=== PATIENT | female | born 2000 | race African-American/Black ===

== ENCOUNTER 2019-04-24 08:11 | Emergency (ER) | payer BC, OTHER ==
[~2019-04-24] VITALS: Ht 165.1 cm; Wt 55.0 kg
--- NOTE | 2019-04-24 09:20 | NUR ---
pt to room from lobby.
--- NOTE | 2019-04-24 09:25 | NUR ---
LAYA Ang at bedside for initial assessment.
[2019-04-24 09:28] LABS: ALBUMIN 4.1 g/dL (3.4-5.0); ANION GAP 9 mmol/L (5-15); CALCIUM 8.5 mg/dL (8.5-10.1); CHLORIDE 104 mmol/L (98-107); CREATININE 0.89 mg/dL (0.55-1.02)
[2019-04-24 09:40] LABS: MEAN CORPUSCULAR HEMOGLOBIN 24.9 pg (27.0-34.8); MEAN CORPUSCULAR HGB CONC 32.1 g/dL (32.4-35.8); MEAN CORPUSCULAR VOLUME 77.8 fL (80-100); PLATELET COUNT 288 x10^3/uL (130-400); RED BLOOD COUNT 5.21 x10^6/uL (3.82-5.3); RED CELL DISTRIBUTION WIDTH 16.6 % (9.6-15.2)
--- NOTE | 2019-04-24 09:52 | NUR ---
report from LAWSON Murphy. assumed care of pt at this time.
--- NOTE | 2019-04-24 09:53 | NUR ---
REPORT GIVEN TO LAWSON SAEZ WHO IS TO ASSUME CARE AT THIS TIME. PT A&O, RESPS EVEN AND UNLABORED. PT UP TO BATHROOM TO VOID AT THIS TIME, REPORTS NAUSEA BUT IS NOT VOMITING. URINE SENT TO LAB. AWAITING LAB RESULTS AND DISPO.
[2019-04-24 10:05] LABS: BASOPHILS # (AUTO) 0.05 x10^3/uL (0-0.3); BASOPHILS % (AUTO) 1 % (0-1); EOSINOPHILS # (AUTO) 0.05 x10^3/uL (0-0.8); EOSINOPHILS % (AUTO) 1 % (1-7); LYMPHOCYTES # (AUTO) 1.33 x10^3/uL (1-6.1); LYMPHOCYTES % (AUTO) 23 % (22-44); MD SCAN; MONOCYTES % (AUTO) 10 % (2-9); NEUTROPHILS # (AUTO) 3.87 x10^3/uL (1.8-8.0); NEUTROPHILS % (AUTO) 66 % (42-75)
[2019-04-24 10:06] LABS: MICROSCOPIC NOT IND
--- NOTE | 2019-04-24 10:15 | NUR ---
PT RESTING IN ROOM. VSS. POC DISCUSSED. PT CHANGED INTO GOWN. LABS DRAWN. AWAITING RESULTS AND US.
[2019-04-24 10:30] LABS: CULTURE INDICATED? NO
--- NOTE | 2019-04-24 10:58 | NUR ---
pt resting in room. vss. pt to us at this time.
--- NOTE | 2019-04-24 11:33 | NUR ---
pt back from us. no needs expressed. vss. awaiting results.
--- NOTE | 2019-04-24 11:54 | NUR ---
PT RESTING IN ROOM. VSS. NO NEEDS EXPRESSED. CALL LIGHT WITHIN REACH. ALL RESULTS BACK AT THIS TIME. CHART UP FOR RECHECK.
--- NOTE | 2019-04-24 12:00 | NUR ---
to bs to update on results and poc.
[2019-04-24 13:00] VITALS: BP 106/52
== END 2019-04-24 13:03 | disposition home or self-care (01) ==
LOC: ED 10:23
DX: O26.891 Other specified pregnancy related conditions, first trimester (principal); R10.2 Pelvic and perineal pain; F17.200 Nicotine dependence, unspecified, uncomplicated; Z32.01 Encounter for pregnancy test, result positive; Z3A.01 Less than 8 weeks gestation of pregnancy
CPT/HCPCS: 36415; 76801; 80048; 81003; 82040; 84702; 84703; 85025; 86901; 99284

== ENCOUNTER 2020-08-06 20:25 | Emergency (ER) | payer SELFPAY ==
[~2020-08-06] VITALS: Ht 165.1 cm; Wt 551.4 kg
--- NOTE | 2020-08-06 20:43 | NUR ---
UA SENT TO LAB
[2020-08-06 20:52] LABS: HCG UR SG 1.016 (1.003-1.030); MICROSCOPIC NOT IND
--- NOTE | 2020-08-06 20:56 | NUR ---
FAMILY LAW MEDIATOR: PT. TO ROOM FROM LOBBY AT THIS TIME.
[2020-08-06 21:20] LABS: BASOPHILS % (AUTO) 1 % (0-1); EOSINOPHILS % (AUTO) 1 % (1-7); LYMPHOCYTES % (AUTO) 29 % (22-44); MEAN CORPUSCULAR HEMOGLOBIN 24.9 pg (27.0-34.8); MEAN CORPUSCULAR HGB CONC 32.3 g/dL (32.4-35.8); MEAN PLATELET VOLUME 8.4 fL (7.4-10.4); MONOCYTES % (AUTO) 11 % (2-9); NEUTROPHILS % (AUTO) 57 % (42-75); PLATELET COUNT 285 x10^3/uL (130-400); RED BLOOD COUNT 5.02 x10^6/uL (3.82-5.3); RED CELL DISTRIBUTION WIDTH 15.2 % (9.6-15.2)
[2020-08-06 21:22] LABS: MD NO
--- NOTE | 2020-08-06 21:47 | NUR ---
PATENT RESTING IN BED IN NAD. CALL CHRISTIE IN REACH. SAFETY MAINTAINED. PELVIC SET UP IN ROOM
[2020-08-06 22:00] VITALS: BP 124/70
[2020-08-06 22:19] LABS: WET PREP WBCS FEW (FEW)
[2020-08-06 22:21] LABS: CLUE CELLS PRESENT (NONE SEEN)
--- NOTE | 2020-08-06 22:49 | NUR ---
PATIENT RESTING IN BED IN NAD. CALL CHRISTIE IN REACH. SAFETY MAINTAINED. WILL CONTINUE TO MONITOR
--- NOTE | 2020-08-06 22:59 | NUR ---
DISCHARGE INSTRUCTIONS REVIEWED WITH PATIENT. NO FURTHER QUESTIONS. PRESCRIPTION HANDED DIRECTLY TO PATIENT. STEADY GAIT IN ROOM. VS REMAIN STABLE. ALL PERSONAL BELONGINGS WITH PATIENT ON DEPARTURE. NO IV PLACED DURING THIS ER VISIT. SHRUTHI WHYTE NOTIFIED RN THAT SHE WAS CANCELING US FOR THIS PATIENT. Powered NOTIFIED
== END 2020-08-06 23:10 | disposition home or self-care (01) ==
LOC: ED 20:55
DX: O23.591 Infection of other part of genital tract in pregnancy, first trimester (principal); R10.2 Pelvic and perineal pain; Z3A.08 8 weeks gestation of pregnancy
CPT/HCPCS: 36415; 81003; 81025; 84702; 85025; 86901; 87210; 87491; 87591; 87808; 99284

== ENCOUNTER 2020-08-29 12:07 | Emergency (ER) | payer SELFPAY ==
[~2020-08-29] VITALS: Ht 165.1 cm; Wt 49.5 kg
--- NOTE | 2020-08-29 13:56 | NUR ---
LANGUAGE ASST: PT TO ROOM FROM LOBBY
--- NOTE | 2020-08-29 14:04 | NUR ---
THIS RN AT BEDSIDE FOR RECTAL EXAM.
[2020-08-29 14:30] VITALS: BP 105/54
== END 2020-08-29 14:32 | disposition home or self-care (01) ==
LOC: ED 14:12
DX: O46.91 Antepartum hemorrhage, unspecified, first trimester (principal); K60.0 Acute anal fissure; K59.00 Constipation, unspecified; K62.89 Other specified diseases of anus and rectum; Z3A.01 Less than 8 weeks gestation of pregnancy
CPT/HCPCS: 99281

== ENCOUNTER 2020-12-10 11:29 | Emergency (ER) | payer OTHER ==
[~2020-12-10] VITALS: Ht 165.1 cm; Wt 57.0 kg
--- NOTE | 2020-12-10 11:45 | NUR ---
batch or continuous still operator note: L&D contacted when pt first checked in to verify if patient should be seen in ER or L&D first. Per L&D the pt can be seen in ER, L&D RN will come perform FHT once patient is in a room. Pt roomed in rm 16, L&D contacted to advise that patient is ready for FHT to be performed.
--- NOTE | 2020-12-10 12:49 | NUR ---
ELISEO Bryson at bedside for eval
[2020-12-10 13:11] LABS: BASOPHILS % (AUTO) 1 % (0-1); EOSINOPHILS % (AUTO) 1 % (1-7); LYMPHOCYTES % (AUTO) 21 % (22-44); MEAN CORPUSCULAR HEMOGLOBIN 25.7 pg (27.0-34.8); MEAN CORPUSCULAR HGB CONC 32.8 g/dL (32.4-35.8); MEAN PLATELET VOLUME 8.4 fL (7.4-10.4); MONOCYTES % (AUTO) 10 % (2-9); NEUTROPHILS % (AUTO) 67 % (42-75); PLATELET COUNT 233 x10^3/uL (130-400); RED BLOOD COUNT 4.53 x10^6/uL (3.82-5.3); RED CELL DISTRIBUTION WIDTH 15.4 % (9.6-15.2)
[2020-12-10 13:18] VITALS: BP 100/45
--- NOTE | 2020-12-10 13:18 | NUR ---
ASSUMING CARE OF PATIENT AFTER REPORT FROM AVERY. VSS. SINGH
[2020-12-10 13:29] LABS: ANION GAP 3 mmol/L (5-15); CHLORIDE 106 mmol/L (98-107)
[2020-12-10 13:31] LABS: CALCIUM 8.3 mg/dL (8.5-10.1); CREATININE 0.57 mg/dL (0.55-1.02)
--- NOTE | 2020-12-10 13:54 | NUR ---
Patient given discharge instructions and they have confirmed that they understand the instructions. Patient ambulatory with steady gait.
== END 2020-12-10 13:58 | disposition home or self-care (01) ==
LOC: ED 13:34
DX: O26.892 Other specified pregnancy related conditions, second trimester (principal); J02.9 Acute pharyngitis, unspecified; R94.31 Abnormal electrocardiogram [ECG] [EKG]; Z3A.21 21 weeks gestation of pregnancy
CPT/HCPCS: 36415; 71045; 80048; 85025; 93005; 99285

== ENCOUNTER 2021-01-06 20:04 | Outpatient (CLI) | payer OTHER ==
[2021-01-06 20:52] LABS: BASOPHILS % (AUTO) 0 % (0-1); EOSINOPHILS % (AUTO) 1 % (1-7); LYMPHOCYTES % (AUTO) 22 % (22-44); MEAN CORPUSCULAR HEMOGLOBIN 25.3 pg (27.0-34.8); MEAN CORPUSCULAR HGB CONC 32.8 g/dL (32.4-35.8); MEAN PLATELET VOLUME 8.5 fL (7.4-10.4); MONOCYTES % (AUTO) 9 % (2-9); NEUTROPHILS % (AUTO) 68 % (42-75); PLATELET COUNT 234 x10^3/uL (130-400); RED BLOOD COUNT 4.45 x10^6/uL (3.82-5.3); RED CELL DISTRIBUTION WIDTH 15.6 % (9.6-15.2)
[2021-01-06 20:59] LABS: ALANINE AMINOTRANSFERASE 16 U/L (12-78); ALBUMIN 2.8 g/dL (3.4-5.0); ANION GAP 5 mmol/L (5-15); C-REACTIVE PROTEIN, QUANT 0.04 mg/dL (0.02-0.49); CALCIUM 8.7 mg/dL (8.5-10.1); CHLORIDE 107 mmol/L (98-107); CREATININE 0.55 mg/dL (0.55-1.02)
[2021-01-06 21:01] LABS: ALKALINE PHOSPHATASE 58 U/L (45-117); BILIRUBIN,TOTAL 0.2 mg/dL (0.2-1.0); TOTAL PROTEIN 6.4 g/dL (6.4-8.2)
[2021-01-06 22:37] LABS: MICROSCOPIC NOT IND
== END 2021-01-06 22:45 | disposition home or self-care (01) ==
LOC: LDOP 20:04
PROVIDERS: ATTEND Obstetrics & Gynecology
DX: O26.892 Other specified pregnancy related conditions, second trimester (principal); R10.9 Unspecified abdominal pain; Z3A.25 25 weeks gestation of pregnancy
CPT/HCPCS: 36415; 76705; 80053; 81003; 85025; 86140; 87086; 99211; G0463